=== PATIENT | male | born 1945 | race Caucasian/White ===

== ENCOUNTER 2021-12-25 08:17 | Emergency (ER) | payer MEDICARE, MEDICAID ==
[2021-12-25] MEDS ORDERED: LIPITOR40 MG PO (08:27)
[2021-12-25] MEDS ORDERED: CLARITIN10 MG PO (08:27)
[2021-12-25] MEDS ORDERED: CYMBALTA60 MG PO (08:28)
[2021-12-25] MEDS ORDERED: LOSARTAN POTASS50 M1 PO (08:28)
[2021-12-25] MEDS ORDERED: PLAVIX75 M1 PO (08:29)
[2021-12-25] MEDS ORDERED: METFORMIN HYDR500 MG PO (08:30)
[2021-12-25] MEDS ORDERED: PROTONIX40 MG PO (08:31)
[2021-12-25] MEDS ORDERED: XARE15TA PO (08:31)
[2021-12-25] MEDS ORDERED: FERROUS SULFAT325 MG PO (08:32)
[2021-12-25] MEDS ORDERED: GABAPENTIN600 MG PO (08:32)
[2021-12-25] MEDS ORDERED: ALBUTEROL2.5 MG/0.5 INH (08:33)
[2021-12-25] MEDS ORDERED: HYDROCODON-ACE1 EACH PO (08:35)
== END 2021-12-25 11:44 | disposition home or self-care (01) ==
LOC: ED 08:17
DX: S51.011A Laceration without foreign body of right elbow, initial encounter (principal); M25.551 Pain in right hip; Z79.899 Other long term (current) drug therapy; W06.XXXA Fall from bed, initial encounter; Y93.89 Activity, other specified; Y92.89 Other specified places as the place of occurrence of the external cause; Y99.9 Unspecified external cause status

== ENCOUNTER 2022-06-12 09:19 | Emergency (ER) | payer MEDICARE, MEDICAID ==
[~2022-06-12 09:19] MED LIST: ALBUTEROL2.5 MG/0.5 INH; CLARITIN10 MG PO; CYMBALTA60 MG PO; FERROUS SULFAT325 MG PO; GABAPENTIN600 MG PO; HYDROCODON-ACE1 EACH PO; LIPITOR40 MG PO; LOSARTAN POTASS50 M1 PO; METFORMIN HYDR500 MG PO; PLAVIX75 M1 PO; PROTONIX40 MG PO; XARE15TA PO
[2022-06-12 09:24] VITALS: BP 175/73; BP 189/78
[2022-06-12 11:09] LABS: BASO % 0.4 % (0.0-1.0); EOS # 0.2 10*3/uL (0.0-0.4); EOS % 2.4 % (1.0-4.0); HEMATOCRIT 41.4 % (42.0-52.0); LYMPH # 1.6 10*3/uL (1.3-4.4); LYMPH % 19.4 % (27.0-41.0); MEAN CORPUSCULAR HGB 29.9 pg (27.0-31.0); MEAN CORPUSCULAR HGB CONC 32.1 g/dl (33.0-37.0); MEAN PLATELET VOLUME 8.8 fl (9.6-12.3); MONO # 0.8 10*3/uL (0.1-1.0); MONO % 9.3 % (3.0-9.0); NEUT # 5.6 10*3/uL (2.3-7.9); NEUT % 67.4 % (47.0-73.0); PLATELET COUNT AUTOMATED 278 10*3/uL (130-400); RED BLOOD COUNT 4.45 10*6/uL (4.50-5.90); RED CELL DISTRI WIDTH 13.6 % (0-14.5); WHITE BLOOD COUNT 8.2 10*3/uL (4.8-10.8)
[2022-06-12 11:18] LABS: BILIRUBIN Negative (Negative); BLOOD 3+ (Negative); CLARITY Turbid (Clear); GLUCOSE Negative (Negative); KETONE Negative (Negative); LEUKO ESTERASE 3+ (Negative); NITRITE Negative (Negative); PH 6.5 (4.5-8.0); UROBILINOGEN 0.2 E.U./dl (0.0-1.0)
[2022-06-12 11:26] LABS: ALKALINE PHOSPHATASE 119 U/L (46-116); BUN 20 mg/dl (9-23); CHLORIDE 103 mmol/L (98-107); LIPASE 37 U/L (12-53); POTASSIUM 4.5 mmol/L (3.4-5.1); SGPT/ALT 9 U/L (10-49); TOTAL PROTEIN 8.1 gm/dL (6.0-8.0)
[2022-06-12 11:32] LABS: BACTERIA 2+; COLOR Red (Yellow); RBC TNTC rbc/hpf (0-2); WBC TNTC wbc/hpf (0-5)
[2022-06-12 12:34] LABS: ACT PARTIAL THROMBO TIME 36.3 SECONDS (20.0-32.1); INTERNATIONAL NORM RATIO 1.1 (2.0-3.5)
[2022-06-12] MEDS ORDERED: PYRIDIUM100 MG PO (12:44)
[2022-06-12] MEDS ORDERED: XOPENEX1.25 MG/3 INH (12:45)
[2022-06-12] MEDS ORDERED: GABAPENTIN600 MG PO (12:46)
[2022-06-12] MEDS ORDERED: XARE15TA PO (12:47)
[2022-06-12] MEDS ORDERED: PROTONIX40 MG PO (12:48)
[2022-06-12] MEDS ORDERED: TYLENOL EXTRA500 MG PO (12:48)
[2022-06-12] MEDS ORDERED: IRON325 M1 PO (12:48)
[2022-06-12] MEDS ORDERED: BUDESONIDE0.5 MG/2 M INH (12:49)
[2022-06-12] MEDS ORDERED: LASIX20 MG PO (12:51)
[2022-06-12] MEDS ORDERED: LOSARTAN POTASS50 M1 PO (12:51)
[2022-06-12] MEDS ORDERED: PLAVIX75 M1 PO (12:52)
[2022-06-12] MEDS ORDERED: CYMBALTA60 MG PO (12:54)
[2022-06-12] MEDS ORDERED: HUMALOG100 UNIT/2 SQ (12:56)
[2022-06-12] MEDS ORDERED: BREO ELLIPTA 11 EACH INH (12:57)
[2022-06-12] MEDS ORDERED: LIPITOR40 MG PO (12:57)
[2022-06-12 14:00] VITALS: BP 175/73
[2022-06-12 22:01] VITALS: BP 167/89
[2022-06-13 00:30] VITALS: BP 160/85
[2022-06-13 06:19] VITALS: BP 143/75
[2022-06-13 07:30] LABS: BASO % 0.3 % (0.0-1.0); EOS # 0.2 10*3/uL (0.0-0.4); EOS % 1.9 % (1.0-4.0); HEMATOCRIT 37.9 % (42.0-52.0); LYMPH # 1.8 10*3/uL (1.3-4.4); LYMPH % 20.6 % (27.0-41.0); MEAN CORPUSCULAR HGB 30.1 pg (27.0-31.0); MEAN CORPUSCULAR HGB CONC 32.7 g/dl (33.0-37.0); MEAN PLATELET VOLUME 8.8 fl (9.6-12.3); MONO % 10.9 % (3.0-9.0); NEUT # 5.8 10*3/uL (2.3-7.9); NEUT % 65.5 % (47.0-73.0); PLATELET COUNT AUTOMATED 269 10*3/uL (130-400); RED BLOOD COUNT 4.12 10*6/uL (4.50-5.90); RED CELL DISTRI WIDTH 13.8 % (0-14.5); WHITE BLOOD COUNT 8.8 10*3/uL (4.8-10.8)
[2022-06-13 08:03] LABS: VITAMIN D, 25-HYDROXY 32.2 ng/mL (30-100)
[2022-06-13 08:12] LABS: BUN 20 mg/dl (9-23); CHLORIDE 106 mmol/L (98-107); CHOLESTEROL 119 mg/dL (<200); LDL CHOLESTEROL 49 mg/dL (9-159); POTASSIUM 3.8 mmol/L (3.4-5.1); THYROID STIM HORMONE (HS) 2.519 uIU/ml (0.550-4.780); TRIGLYCERIDES 193 mg/dl (<150)
[2022-06-13 12:00] VITALS: BP 138/68
== END 2022-06-13 12:46 | disposition short-term general hospital (02) ==
LOC: ED 09:19 → EDHOLD 12:58 → ED 12:58 → EDHOLD 13:40 → ED 06-13 12:46
PROVIDERS: Emergency Medicine; Student in an Organized Health Care Education/Training Program
DX: N39.0 Urinary tract infection, site not specified (principal); R31.9 Hematuria, unspecified; Z79.899 Other long term (current) drug therapy; Z90.89 Acquired absence of other organs; Z87.891 Personal history of nicotine dependence